=== PATIENT | male | born 1975 | race Caucasian/White ===

== ENCOUNTER 2017-06-27 11:09 | Day surgery (SDC) | payer BC ==
[~2017-06-27 11:09] MED LIST: ACETAMINOPHEN 325 MG TABLET PO PRN; DEXAMETHASONE SODIUM PHOSPHATE 10 MG/ML VIAL IV PRN; ONDANSETRON HCL/PF 2 MG/ML VIAL IV PRN; OXYMETAZOLINE HCL 150 SPRAY BTL NS PRN; RINGER'S SOLUTION,LACTATED 1,000 ML IV PRN; ceFAZolin SODIUM 1 GM VIAL IV PRN; oxyCODONE HCL/ACETAMINOPHEN 1 TAB TABLET PO PRN
[2017-06-27] MEDS: OXYMETAZOLINE HCL 150 SPRAY BTL NS PRN ×2 (11:33→12:49)
[2017-06-27] MEDS ORDERED: RINGER'S SOLUTION,LACTATED 1,000 ML IV ONE ×4 (11:40→15:30)
[2017-06-27] MEDS ORDERED: LIDOCAINE HCL/EPINEPHRINE 30 ML VIAL IJ ONE ×2 (13:05)
[2017-06-27] MEDS ORDERED: COCAINE HCL 4 APPL BTL TP ONE ×2 (13:05)
[2017-06-27] MEDS ORDERED: MUPIROCIN 22 APPL TUBE TP ONE (13:05)
[2017-06-27] MEDS ORDERED: MORPHINE SULFATE 2 MG/ML DISP.SYRIN IV PRN ×2 (13:57→13:58)
[2017-06-27] MEDS ORDERED: MORPHINE SULFATE 4 MG/ML SYRG IV PRN ×2 (13:58→13:59)
[2017-06-27 15:50] VITALS: BP 144/91
== END 2017-06-27 11:10 | disposition home or self-care (01) ==
LOC: AMB 11:09
PROVIDERS: ATTEND Allergy & Immunology
PROC: 09BM3ZZ Excision of Nasal Septum, Percutaneous Approach (ICD-10-PCS; principal; 2017-06-27)
PROC: 09BL3ZZ Excision of Nasal Turbinate, Percutaneous Approach (ICD-10-PCS; 2017-06-27)
DX: J34.2 Deviated nasal septum (principal); J34.3 Hypertrophy of nasal turbinates; J30.1 Allergic rhinitis due to pollen; R09.81 Nasal congestion; Z68.29 Body mass index [BMI] 29.0-29.9, adult